=== PATIENT | female | born 1960 | race Caucasian/White ===

== ENCOUNTER 2019-06-08 15:48 | Inpatient (IN) ==
[2019-06-08] MEDS ORDERED: Aspirin 81 MG TAB.CHEW PO ONE (16:14)
[2019-06-08] MEDS: Nitroglycerin 0.4 MG TAB.SUBL SL PRN ×2 (16:42→16:58)
[2019-06-08 16:47] LABS: Basophils % 0.3 %; Eosinophils # 0.1 K/mcL (0.0-0.6); Eosinophils % 0.6 %; Hematocrit 46.9 % (35.3-44.9); Hemoglobin 14.9 g/dL (11.5-15.4); Immature Granulocytes % 0.6 % (0-4); Lymphocytes # 1.3 K/mcL (0.6-4.6); Lymphocytes % 9.6 %; Mean Corpuscular HGB Conc 31.8 g/dL (31.6-35.5); Mean Corpuscular Hemoglobin 29.3 pg (28.0-33.3); Mean Corpuscular Volume 92.1 fL (83.0-100.0); Mean Platelet Volume 10.3 fL (9.4-12.4); Monocytes # 0.4 K/mcL (0.0-1.3); Neutrophils # 11.9 K/mcL (1.6-8.9); Platelet Count 266 K/mcL (140-400); Red Blood Count 5.09 M/mcL (3.82-4.97); Red Cell Distribution Width 14.6 % (11.5-14.5); Segmented Neutrophils % 85.9 %; White Blood Count 13.9 K/mcL (4.3-11.1)
[2019-06-08 17:10] LABS: BUN/Creatinine Ratio 21 (6-26); Blood Urea Nitrogen 19 mg/dL (8-23); Calcium 9.7 mg/dL (8.6-10.3); Carbon Dioxide 28 mEq/L (23-29); Chloride 103 mEq/L (98-107); Glucose 231 mg/dL (70-105); Osmolality,Calculated 296 (280-300); Potassium 4.3 mEq/L (3.5-5.1); Sodium 138 mEq/L (136-145); Troponin I 0.03 ng/mL (< 0.04); eGFR For African Americans > 60 (> 60); eGFR For Non-African Americans > 60 (> 60)
[2019-06-08] MEDS ORDERED: Ondansetron 4 MG/2 ML VIAL IVP STA (17:11)
[2019-06-08] MEDS ORDERED: Morphine Sulfate 2 MG/ML SYRINGE IVP STA (17:11)
[2019-06-08] MEDS ORDERED: Ondansetron 4 MG/2 ML VIAL IVP PRN (18:50)
[2019-06-08] MEDS ORDERED: Naloxone 0.4 MG/ML INJ IVP PRN (18:50)
[2019-06-08] MEDS ORDERED: Acetaminophen 325 MG TABLET PO PRN (18:50)
[2019-06-08 19:17] LABS: Lipase 45 Units/L (11-82)
[2019-06-08] MEDS ORDERED: *HR* Heparin 5,000 UNIT/ML VIAL IVP PRN ×2 (23:23)
[2019-06-08] MEDS ORDERED: *HR* Heparin 5,000 UNIT/ML VIAL IVP ONE (23:23)
[2019-06-09] MEDS: Heparin 25,000 UNIT/250 ML D5W 25,000 UNIT/250 ML IV.SOLN IVC SCH (00:10)
[2019-06-09 00:25] LABS: Hematocrit 41.4 % (35.3-44.9); Hemoglobin 13.7 g/dL (11.5-15.4); Heparin anti-factor XA UFH 0.02 IU/mL (0.30-0.70); Mean Corpuscular HGB Conc 33.1 g/dL (31.6-35.5); Mean Corpuscular Hemoglobin 28.8 pg (28.0-33.3); Mean Platelet Volume 10.7 fL (9.4-12.4); Platelet Count 252 K/mcL (140-400); Prothrombin Time 11.2 Seconds (9.4-12.1); Red Blood Count 4.76 M/mcL (3.82-4.97); Red Cell Distribution Width 14.7 % (11.5-14.5); White Blood Count 10.8 K/mcL (4.3-11.1)
[2019-06-09 00:37] LABS: Activated Partial Thrombo Time 28.6 Seconds (26.0-36.0)
[2019-06-09 04:52] LABS: Basophils % 0.3 %; Eosinophils % 0.3 %; Hematocrit 40.3 % (35.3-44.9); Hemoglobin 12.5 g/dL (11.5-15.4); Immature Granulocytes % 0.5 % (0-4); Lymphocytes % 17.2 %; Mean Corpuscular Hemoglobin 28.5 pg (28.0-33.3); Mean Platelet Volume 10.8 fL (9.4-12.4); Monocytes # 0.5 K/mcL (0.0-1.3); Monocytes % 4.3 %; Neutrophils # 9.1 K/mcL (1.6-8.9); Platelet Count 211 K/mcL (140-400); Red Blood Count 4.38 M/mcL (3.82-4.97); Red Cell Distribution Width 14.6 % (11.5-14.5); Segmented Neutrophils % 77.4 %; White Blood Count 11.8 K/mcL (4.3-11.1)
[2019-06-09 05:10] LABS: Magnesium 1.9 mg/dL (1.6-2.6); Potassium 4.5 mEq/L (3.5-5.1)
[2019-06-09] MEDS ORDERED: Regadenoson 0.4 MG/5 ML SYRINGE IVP ONE (06:40)
[2019-06-09] MEDS ORDERED: *HR* Midazolam HCl 2 MG/2 ML VIAL ONE (09:43)
[2019-06-09] MEDS ORDERED: 0.9 % Sodium Chloride 1,000 ML ONE ×2 (09:45→10:32)
[2019-06-09] MEDS ORDERED: Aspirin Enteric Coated 81 MG Tablet PO SCH (10:00)
[2019-06-09] MEDS ORDERED: *HR* Ticagrelor 90 MG TABLET ONE (10:21)
[2019-06-09] MEDS ORDERED: Heparin 1,000 UNITS/500 mL 500 ML ONE (10:32)
[2019-06-09] MEDS ORDERED: ISOVUE-370 200 ML INFUS..BTL ONE (10:32)
[2019-06-09] MEDS ORDERED: Nitroglycerin 1,000 MCG/10 ML VIAL IV ONE (10:32)
[2019-06-09] MEDS ORDERED: *HR* Heparin 10,000 UNIT/10 ML VIAL ONE (10:32)
[2019-06-09 10:49] LABS: Estimated Average Glucose 177 mg/dl
[2019-06-09 11:08] LABS: Bilirubin,Urine Negative (Negative); Blood,Urine Negative (Negative); Clarity,Urine Clear (Clear); Color,Urine Yellow (Yellow); Glucose,Urine (UA) Normal (Normal); Ketones,Urine Negative (Negative); Leukocyte Esterase,Urine Negative (Negative); Nitrite,Urine Negative (Negative); PH,Urine 5.5 pH Units (5.0-8.0); Protein,Urine Trace mg/dL (Neg-Trace); Specific Gravity,Urine >= 1.030 (1.010-1.025); Urobilinogen,Urine Normal (Normal)
[2019-06-09] MEDS: 0.9 % Sodium Chloride 1,000 ML IVC SCH (11:39)
[2019-06-09 14:03] LABS: Estimated Average Glucose 177 mg/dl
[2019-06-09] MEDS ORDERED: *HR* Dextrose 50 % in Water (Syg) 50 ML SYRINGE IVP PRN (18:05)
[2019-06-09] MEDS ORDERED: D5% in Water 1,000 ML IVC PRN (18:05)
[2019-06-09] MEDS ORDERED: Dextrose Gel 15 GM/37.5 ML TUBE PO PRN ×2 (18:05)
[2019-06-09] MEDS: *HR* Ticagrelor 90 MG TABLET PO SCH (21:50)
[2019-06-10 02:15] LABS: Basophils % 0.4 %; Eosinophils # 0.1 K/mcL (0.0-0.6); Hemoglobin 12.4 g/dL (11.5-15.4); Immature Granulocytes % 0.6 % (0-4); Lymphocytes # 1.9 K/mcL (0.6-4.6); Lymphocytes % 16.7 %; Mean Corpuscular Volume 93.5 fL (83.0-100.0); Monocytes # 0.8 K/mcL (0.0-1.3); Monocytes % 7.6 %; Neutrophils # 8.1 K/mcL (1.6-8.9); Platelet Count 179 K/mcL (140-400); Red Blood Count 4.28 M/mcL (3.82-4.97); Red Cell Distribution Width 14.8 % (11.5-14.5); Segmented Neutrophils % 73.7 %; White Blood Count 11.1 K/mcL (4.3-11.1)
[2019-06-10] MEDS: 0.9 % Sodium Chloride 1,000 ML IVC SCH (02:21)
[2019-06-10] MEDS: Heparin 25,000 UNIT/250 ML D5W 25,000 UNIT/250 ML IV.SOLN IVC SCH (02:22)
[2019-06-10 02:33] LABS: Chol/HDL Ratio 6.7 (0-4.9)
[2019-06-10 02:37] LABS: BUN/Creatinine Ratio 28 (6-26); Blood Urea Nitrogen 23 mg/dL (8-23); Calcium 8.7 mg/dL (8.6-10.3); Carbon Dioxide 21 mEq/L (23-29); Chloride 103 mEq/L (98-107); Glucose 160 mg/dL (70-105); Magnesium 1.8 mg/dL (1.6-2.6); Osmolality,Calculated 281 (280-300); Potassium 4.3 mEq/L (3.5-5.1); Sodium 132 mEq/L (136-145); eGFR For African Americans > 60 (> 60); eGFR For Non-African Americans > 60 (> 60)
[2019-06-10 06:59] VITALS: BP 109/72
[2019-06-10] MEDS ORDERED: Insulin LISPRO 300 UNITS/3 ML VIAL SQ SCH (08:00)
[2019-06-10] MEDS ORDERED: Insulin DETEMIR 100 UNIT/ML X5UNITS SQ SCH (09:00)
[2019-06-10] MEDS ORDERED: Nicotine 14 MG PATCH.TD24 TD SCH (09:00)
[2019-06-10] MEDS ORDERED: Aspirin 81 MG TAB.CHEW PO SCH (09:00)
[2019-06-10] MEDS: *HR* Ticagrelor 90 MG TABLET PO SCH (09:18)
== END 2019-06-10 14:24 | disposition home or self-care (01) | DRG 247 ==
LOC: SUATTDRO → 3BNU 15:48 → EMEROOARM 15:48 → SUATTDRO 19:15 → 3BNU 19:36
PROVIDERS: ADMIT Internal Medicine; ATTEND Pharmacist

== ENCOUNTER 2020-03-22 06:13 | Inpatient (IN) ==
[2020-03-22] MEDS ORDERED: CeFAZolin Syr 2,000MG/20 ML 2,000 MG/20 ML SYRINGE IVPB ONE (06:25)
[2020-03-22] MEDS ORDERED: Ringers Solution, Lactated 1,000 ML IVC SCH (06:30)
[2020-03-22] MEDS ORDERED: Acetaminophen IV 1,000 MG/100 ML INFUS..BTL IVPB ONE (06:45)
[2020-03-22] MEDS ORDERED: *HR* Propofol 200 MG/20 ML VIAL IVP ONE (07:01)
[2020-03-22] MEDS ORDERED: *HR* Heparin 5,000 UNIT/ML VIAL ONE (07:01)
[2020-03-22] MEDS ORDERED: Lidocaine -MPF 2% 2 ML VIAL ONE ×2 (07:02→08:36)
[2020-03-22] MEDS ORDERED: *HR* Rocuronium Bromide 50 MG/5 ML VIAL ONE (07:02)
[2020-03-22] MEDS ORDERED: Dexamethasone 4 MG/ML VIAL ONE (07:02)
[2020-03-22] MEDS ORDERED: Ondansetron 4 MG/2 ML VIAL ONE (07:02)
[2020-03-22] MEDS ORDERED: *HR* FentaNYL (PF) 100 MCG/2 ML VIAL ONE (07:04)
[2020-03-22] MEDS ORDERED: Heparin 1,000 UNITS/500 mL 1,000 ML ONE (07:09)
[2020-03-22] MEDS ORDERED: Heparin 1,000 UNITS/500 mL 500 ML ONE (07:09)
[2020-03-22] MEDS ORDERED: *HR* Meperidine 25 MG/ML SYRINGE IVP PRN (07:14)
[2020-03-22] MEDS ORDERED: *HR* HYDROmorphone PF 0.5 MG/0.5 ML SYRINGE IVP PRN (07:14)
[2020-03-22] MEDS ORDERED: Ondansetron 4 MG/2 ML VIAL IVP ONE (07:14)
[2020-03-22] MEDS ORDERED: *HR* Phenylephrine 10 MG/ML VIAL ONE (07:14)
[2020-03-22] MEDS ORDERED: *HR* Promethazine 25 MG/ML VIAL IVP PRN (07:14)
[2020-03-22] MEDS ORDERED: Vancomycin 1,000 MG, Sodium Chloride IRRigation 1,000 ML IR ONE (07:45)
[2020-03-22] MEDS ORDERED: EPHEDrine 50 MG/ML VIAL ONE (08:48)
[2020-03-22] MEDS ORDERED: *HR* HYDROMORPHONE 2 MG/ML VIAL ONE (09:33)
[2020-03-22] MEDS ORDERED: Neostigmine Methylsulfate 3 MG/3 ML SYRINGE ONE (10:59)
[2020-03-22] MEDS ORDERED: Vancomycin 1,000 MG VIAL ONE (11:07)
[2020-03-22] MEDS ORDERED: Dextrose Gel 15 GM/37.5 ML TUBE PO PRN ×2 (13:33)
[2020-03-22] MEDS ORDERED: *HR* Dextrose 50 % in Water (Vial) 50 ML VIAL IVP PRN (13:33)
[2020-03-22] MEDS ORDERED: *HR* OxyCODONE Immed Rel 5 MG TABLET PO PRN ×2 (13:33)
[2020-03-22] MEDS ORDERED: Acetaminophen 325 MG TABLET PO PRN ×2 (13:33)
[2020-03-22] MEDS ORDERED: Naloxone 0.4 MG/ML INJ IVP PRN (13:33)
[2020-03-22] MEDS ORDERED: 0.9 % Sodium Chloride 1,000 ML IVC SCH (13:33)
[2020-03-22] MEDS ORDERED: Nitroglycerin 0.4 MG TAB.SUBL SL PRN (13:33)
[2020-03-22] MEDS ORDERED: D5% in Water 1,000 ML IVC PRN (13:33)
[2020-03-22] MEDS ORDERED: *HR* Labetalol 20 MG/4 ML SYRINGE IVP PRN (13:33)
[2020-03-22] MEDS ORDERED: *HR* HYDROcodone/Acet 5/325 mg TABLET PO PRN (13:33)
[2020-03-22] MEDS: CeFAZolin 2 GM/120 ML BAG IVPB SCH ×2 (15:54→23:53)
[2020-03-22] MEDS: Insulin LISPRO 300 UNITS/3 ML VIAL SQ SCH (16:04)
[2020-03-22] MEDS: *HR* Metoprolol 5 MG/5 ML VIAL IVP SCH ×2 (17:15→23:54)
[2020-03-22] MEDS: *HR* HYDROcodone/Acet 5/325 mg TABLET PO PRN (17:15)
[2020-03-22] MEDS ORDERED: Insulin LISPRO 300 UNITS/3 ML VIAL SQ SCH (21:00)
[2020-03-22] MEDS ORDERED: rOPINIRole 0.25 MG TABLET PO SCH (21:00)
[2020-03-23] MEDS: *HR* HYDROcodone/Acet 5/325 mg TABLET PO PRN (05:21)
[2020-03-23] MEDS: *HR* Metoprolol 5 MG/5 ML VIAL IVP SCH (05:22)
[2020-03-23 05:51] LABS: Basophils % 0.4 %; Eosinophils # 0.1 K/mcL (0.0-0.6); Hematocrit 29.5 % (35.3-44.9); Immature Granulocytes % 0.2 % (0-4); Lymphocytes # 1.7 K/mcL (0.6-4.6); Lymphocytes % 20.1 %; Mean Corpuscular HGB Conc 31.9 g/dL (31.6-35.5); Mean Corpuscular Hemoglobin 27.9 pg (28.0-33.3); Mean Corpuscular Volume 87.5 fL (83.0-100.0); Mean Platelet Volume 10.2 fL (9.4-12.4); Monocytes # 0.8 K/mcL (0.0-1.3); Monocytes % 9.7 %; Neutrophils # 5.6 K/mcL (1.6-8.9); Nucleated Red Blood Cells 0.2 /100 WBC (0); Platelet Count 231 K/mcL (140-400); Red Blood Count 3.37 M/mcL (3.82-4.97); Red Cell Distribution Width 14.7 % (11.5-14.5); Segmented Neutrophils % 68.6 %; White Blood Count 8.2 K/mcL (4.3-11.1)
[2020-03-23 05:52] LABS: Hemoglobin 9.4 g/dL (11.5-15.4)
[2020-03-23] MEDS ORDERED: *HR* Heparin 5,000 UNIT/ML VIAL SQ SCH ×2 (06:00)
[2020-03-23 06:03] LABS: BUN/Creatinine Ratio 22 (6-26); Blood Urea Nitrogen 17 mg/dL (8-23); Calcium 7.6 mg/dL (8.6-10.3); Carbon Dioxide 22 mEq/L (23-29); Chloride 103 mEq/L (98-107); Glucose 138 mg/dL (70-105); Osmolality,Calculated 280 (280-300); Potassium 4.3 mEq/L (3.5-5.1); Sodium 133 mEq/L (136-145); eGFR For African Americans > 60 (> 60); eGFR For Non-African Americans > 60 (> 60)
[2020-03-23 06:45] VITALS: BP 103/44
[2020-03-23] MEDS: Insulin LISPRO 300 UNITS/3 ML VIAL SQ SCH (07:50)
[2020-03-23] MEDS ORDERED: Metoprolol XL (24 HR) Succ 25 MG TAB.ER.24H PO SCH (09:00)
[2020-03-23] MEDS ORDERED: Aspirin 81 MG TAB.CHEW PO SCH (09:00)
[2020-03-23] MEDS ORDERED: *HR* Ticagrelor 90 MG TABLET PO SCH (09:00)
== END 2020-03-23 10:14 | disposition home or self-care (01) | DRG 253 ==
LOC: SAMDAY 06:13 → 2NNU 13:31
PROVIDERS: ADMIT Surgery; ATTEND Surgery